=== PATIENT | male | born 1965 | race Caucasian/White ===

== ENCOUNTER 2018-10-28 18:14 | Emergency (ER) | payer MEDICAID ==
--- NOTE | 2018-10-28 20:04 | CRLCR ---
Indication: Injury and pain Technique: Left shoulder 3 views Comparison: None Findings/Impression: Bones: Distal head of the left clavicle is dislocated superiorly relative to the acromion. No other osseous abnormality. No fracture visualized. Joint spaces: Unremarkable. Soft tissues: Unremarkable. Dictated by Rodrigue Maradiaga MD @ Oct 28 2018 8:01PM Signed by Dr. Rodrigue Maradiaga @ Oct 28 2018 8:03PM
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
== END 2018-10-28 20:37 | disposition home or self-care (01) ==
LOC: JP.ED 18:14
DX: S43.102A Unspecified dislocation of left acromioclavicular joint, initial encounter (principal); V18.4XXA Pedal cycle driver injured in noncollision transport accident in traffic accident, initial encounter
CPT/HCPCS: 73030-LT; 99283; 99283-25